=== PATIENT | male | born 1955 | race Caucasian/White ===

== ENCOUNTER → 2019-04-27 | Outpatient (CLI) | payer BC ==
[2019-04-27 12:11] LABS: BUN/CREATININE RATIO 10; CARBON DIOXIDE 28 MMOL/L (21-32); CHLORIDE 99 MMOL/L (98-107); CREATININE SERUM 1.21 MG/DL (0.60-1.30); GFR ESTIMATED > 60; GLUCOSE 102 MG/DL (70-105); POTASSIUM 4.3 MMOL/L (3.6-5.0); SODIUM 139 MMOL/L (135-145)
[2019-04-27 12:12] LABS: ALANINE AMINOTRANSFERASE 22 U/L (0-55); ALBUMIN 4.3 GM/DL (3.2-4.5); ALKALINE PHOSPHATASE 58 U/L (40-136); BILIRUBIN,TOTAL 1.1 MG/DL (0.1-1.0); CALCIUM 9.3 MG/DL (8.5-10.1); TOTAL PROTEIN 7.8 GM/DL (6.4-8.2)
[2019-04-27 15:24] LABS: CHOLESTEROL 109 MG/DL (< 200); HDL CHOLESTEROL 60 MG/DL (40-60); TRIGLYCERIDES 52 MG/DL (<150); VLDL CHOLESTEROL 10 MG/DL (5-40)
== END ==
LOC: LAB FS 11:05
PROVIDERS: ATTEND Family Medicine
DX: Z00.00 Encounter for general adult medical examination without abnormal findings (principal)
CPT/HCPCS: 36415; 80053; 80061

== ENCOUNTER → 2019-08-08 | Outpatient (CLI) | payer BC ==
[~2019-08-08] MED LIST: GADOBUTROL 10 MMOL/10 ML (GADAVIST) VIAL IV ONE
[2019-08-08 07:51] LABS: CHLORIDE 100 MMOL/L (98-107); POTASSIUM 3.9 MMOL/L (3.6-5.0); SODIUM 134 MMOL/L (135-145)
[2019-08-08 07:53] LABS: GLUCOSE 102 MG/DL (70-105)
[2019-08-08 07:54] LABS: CARBON DIOXIDE 25 MMOL/L (21-32)
[2019-08-08 07:57] LABS: CREATININE SERUM 1.08 MG/DL (0.60-1.30); GFR ESTIMATED > 60
[2019-08-08 07:58] LABS: BUN/CREATININE RATIO 12
--- NOTE | 2019-08-08 10:47 | Diagnostic Imaging Report ---
PROCEDURE: MR imaging of the brain with and without contrast. TECHNIQUE: Multiplanar, multisequence MR imaging of the brain was performed with and without contrast. INDICATION: Hypertension. COMPARISON: none Findings: No acute ischemia, mass, or hemorrhage. No abnormal enhancement. The ventricles, cortical sulci, and basilar cisterns are symmetric and unremarkable. There is flattening of the pituitary. The major intracranial flow voids are intact. The brainstem and posterior fossa are unremarkable. Retained secretions are seen in the bilateral maxillary sinuses. A small right mastoid effusion is present. The globes and orbits are symmetric and unremarkable. The scalp and calvarium have a normal appearance. Impression: 1. No acute ischemia, mass, or hemorrhage. No abnormal enhancement. 2. Retained secretions in the bilateral maxillary sinuses. Small right mastoid effusion is present. Dictated by: Dictated on workstation # [id number]
== END ==
LOC: RAD 07:10
PROVIDERS: ATTEND Family Medicine
DX: Z01.812 Encounter for preprocedural laboratory examination (principal); H74.8X1 Other specified disorders of right middle ear and mastoid; R51 Headache; Z82.49 Family history of ischemic heart disease and other diseases of the circulatory system
CPT/HCPCS: 36415; 70553; 80048

== ENCOUNTER → 2019-09-05 | Outpatient (CLI) | payer BC ==
[2019-09-05 13:39] LABS: HEMATOCRIT 44 % (40-54); HEMOGLOBIN 15.2 G/DL (13.3-17.7); MEAN CORPUSCULAR HEMOGLOBIN 32 PG (25-34); MEAN CORPUSCULAR VOLUME 92 FL (80-99); WHITE BLOOD COUNT 7.2 10^3/uL (4.3-11.0)
[2019-09-05 13:40] LABS: BASOPHILS % (AUTO) 1 % (0-10); EOSINOPHILS # (AUTO) 0.1 10^3/uL (0.0-0.3); EOSINOPHILS % (AUTO) 1 % (0-10); LYMPHOCYTES % (AUTO) 28 % (12-44); MEAN CORPUSCULAR HGB CONC 35 G/DL (32-36); MEAN PLATELET VOLUME 8.3 FL (7.4-10.4); MONOCYTES # (AUTO) 0.5 X 10^3 (0.0-1.0); MONOCYTES % (AUTO) 7 % (0-12); NEUTROPHILS # (AUTO) 4.5 X 10^3 (1.8-7.8); NEUTROPHILS % (AUTO) 62 % (42-75); PLATELET COUNT 309 10^3/uL (130-400); RED CELL DISTRIBUTION WIDTH 12.9 % (10.0-14.5)
[2019-09-05 13:43] LABS: BACTERIA,URINE FEW /HPF; BILIRUBIN,URINE NEGATIVE (NEGATIVE); CLARITY,URINE CLEAR; COLOR,URINE YELLOW; GLUCOSE, URINE (UA) NEGATIVE (NEGATIVE); KETONES,URINE NEGATIVE (NEGATIVE); LEUKOCYTE ESTERASE ,URINE 1+ (NEGATIVE); NITRITE,URINE NEGATIVE (NEGATIVE); PROTEIN,URINE NEGATIVE (NEGATIVE)
== END ==
LOC: LAB FS 13:11
PROVIDERS: ATTEND Family Medicine
DX: R31.9 Hematuria, unspecified (principal); R53.82 Chronic fatigue, unspecified
CPT/HCPCS: 36415; 81000; 82607; 84153; 85025; 87088

== ENCOUNTER → 2020-08-27 | Outpatient (CLI) | payer BC ==
--- NOTE | 2020-08-27 13:58 | Diagnostic Imaging Report ---
INDICATION: Remote sports related injury, chronic neck pain. FINDINGS: There is degenerative disc space narrowing, endplate sclerosis, and osteophytes, most severe at C6-C7 with a slight grade 1 degenerative retrolisthesis of C6 by about 2 mm. Less advanced but substantial disease at the C4-C5 and C5-C6 levels is present. There is mid to lower cervical facet arthrosis. The prevertebral space appeared normal. The vertebral statures are normal. No fracture. IMPRESSION: Lower cervical spondylosis and mid to lower facet arthrosis with grade 1 degenerative retrolisthesis. Given the severity of radiographic disease if there is radiculopathy or is otherwise indicated, follow-up with nonemergent outpatient MRI may provide additional utility if stenoses would be clinically suspected. Dictated by: Dictated on workstation # [id number]
== END ==
LOC: RAD FS 13:03
PROVIDERS: ATTEND Family Medicine
DX: M47.812 Spondylosis without myelopathy or radiculopathy, cervical region (principal); M43.12 Spondylolisthesis, cervical region
CPT/HCPCS: 72040

== ENCOUNTER → 2020-09-20 | Outpatient (CLI) | payer BC ==
--- NOTE | 2020-09-20 10:11 | Diagnostic Imaging Report ---
PROCEDURE: MR imaging cervical spine without contrast. TECHNIQUE: Multiplanar, multisequence MR imaging of the cervical spine was performed without contrast. INDICATION: Spondylosis and retrolisthesis noted on recent plain films. COMPARISON: Correlation is made with prior radiographs performed on 08/27/2020. FINDINGS: Curvature of the cervical spine is normal. There is minimal retrolisthesis of C6 on C7. Vertebral body marrow signal is normal. There is generalized degenerative disc disease, however this is greatest at C5-C6 and C6-C7 levels where there is moderate disc space narrowing and desiccation and endplate osteophyte formation. The cervical spinal cord does show normal homogeneous signal intensity and normal morphology. Craniocervical junction is unremarkable. C2-C3: Central canal and neuroforamina are widely patent. C3-C4: Central canal and neuroforamina are widely patent. C4-C5: Endplate osteophytes indent the ventral thecal sac. Central canal is widely patent. Very mild narrowing of the neuroforamina bilaterally is noted. C5-C6: Endplate osteophytes indent the ventral thecal sac. Central canal remains widely patent. There is [id number] left neuroforaminal narrowing. Right neuroforamen is patent. C6-C7: Disc/osteophyte complex indents the ventral thecal sac. There is mild narrowing of the central canal. Uncovertebral joint degenerative change results in significant bilateral neuroforaminal stenosis. C7-T1: No central canal or neuroforaminal stenosis is identified. The paraspinous tissues are unremarkable. IMPRESSION: Cervical spondylosis and listhesis with mild central canal and neuroforaminal narrowing, described level by level above. Dictated by: Dictated on workstation # [id number]
== END ==
LOC: RAD 08:45
PROVIDERS: ATTEND Family Medicine
DX: M43.12 Spondylolisthesis, cervical region (principal); M47.812 Spondylosis without myelopathy or radiculopathy, cervical region; M48.02 Spinal stenosis, cervical region
CPT/HCPCS: 72141

== ENCOUNTER → 2021-05-10 | Outpatient (CLI) | payer BC ==
[2021-05-10 12:41] LABS: CREATININE SERUM 1.08 MG/DL (0.60-1.30); POTASSIUM 4.5 MMOL/L (3.6-5.0)
[2021-05-10 12:42] LABS: CALCIUM 9.2 MG/DL (8.5-10.1)
== END ==
LOC: LAB FS 11:18
PROVIDERS: ATTEND Family Medicine
DX: I10 Essential (primary) hypertension (principal)
CPT/HCPCS: 36415; 80048